=== PATIENT | female | born 1990 | race Caucasian/White ===

== ENCOUNTER 2016-10-14 22:30 | Emergency (ER) | payer SELFPAY ==
[2016-10-15 00:11] LABS: BASOPHIL % 0.7 % (0-2); RED CELL DISTRIBUTION WIDTH 14.1 % (11.5-14.5)
[2016-10-15 00:16] LABS: PLATELET COUNT 478 x10^3mcL (130-400)
[2016-10-15 01:30] VITALS: BP 121/62
== END 2016-10-15 01:30 | disposition home or self-care (01) ==
LOC: ED 22:30
PROVIDERS: Emergency Medicine
DX: O20.0 Threatened abortion (principal); N83.201 Unspecified ovarian cyst, right side; Z3A.01 Less than 8 weeks gestation of pregnancy; Z79.899 Other long term (current) drug therapy

== ENCOUNTER 2017-01-12 10:35 | Emergency (ER) | payer OTHER ==
[2017-01-12 12:10] VITALS: BP 115/65
== END 2017-01-12 12:10 | disposition home or self-care (01) ==
LOC: ED 10:35
DX: O99.89 Other specified diseases and conditions complicating pregnancy, childbirth and the puerperium (principal); O21.9 Vomiting of pregnancy, unspecified; R07.89 Other chest pain; Z79.899 Other long term (current) drug therapy; Z3A.18 18 weeks gestation of pregnancy